=== PATIENT | female | born 1980 | race African-American/Black ===

== ENCOUNTER 2017-03-07 15:24 | Emergency (ER) | payer OTHER ==
[~2017-03-07] VITALS: Ht 149.9 cm; Wt 36.0 kg
[2017-03-07] MEDS ORDERED: SODIUM CHLORIDE 0.9% 1,000 ML IV ONE (18:36)
[2017-03-07 19:20] LABS: BASOPHILS % 0.7 % (0.0-2.0); EOSINOPHILS % 3.5 % (0.0-5.0); HEMATOCRIT. 40.1 % (36.0-48.0); HEMOGLOBIN. 13.1 g/dL (12.0-16.0); LYMPHOCYTES % 28.7 % (20.0-50.0); MEAN CORPUSCULAR HEMOGLOBIN 27.3 pg (28.0-32.0); MEAN CORPUSCULAR VOLUME 83.8 fL (81.0-99.0); MEAN PLATELET VOLUME 9.3 fl (7.4-10.4); NEUTROPHILS % 59.1 % (40.0-76.0); PLATELET 241 x1000/uL (130-400); RED BLOOD CELL COUNT 4.78 mill/uL (4.2-5.4)
[2017-03-07 19:26] LABS: CHLORIDE 103 mEq/L (98-107)
[2017-03-07 19:28] LABS: INR 1.1; PROTHROMBIN TIME 11.4 sec (9.4-11.6)
[2017-03-07 19:32] LABS: CARBON DIOXIDE 27 mEq/L (21-32)
[2017-03-07 20:37] LABS: CLARITY URINE CLEAR (CLEAR); COLOR URINE YELLOW (YELLOW); GLUCOSE URINE NEGATIVE (NEGATIVE); KETONES URINE NEGATIVE (NEGATIVE); LEUKOCYTE ESTERASE URINE NEGATIVE (NEGATIVE); NITRITE URINE NEGATIVE (NEGATIVE); OCCULT BLOOD URINE NEGATIVE (NEGATIVE); PROTEIN URINE NEGATIVE (NEGATIVE); SPECIFIC GRAVITY URINE 1.023 (1.005-1.030); UROBILINOGEN URINE 0.2 E.U./dL (0.2-1.0)
[2017-03-08 00:17] VITALS: BP 120/80
== END 2017-03-08 00:32 | disposition home or self-care (01) ==
LOC: ER 17:46
DX: K59.00 Constipation, unspecified (principal); G93.49 Other encephalopathy; G80.9 Cerebral palsy, unspecified; G40.909 Epilepsy, unspecified, not intractable, without status epilepticus; M41.9 Scoliosis, unspecified
CPT/HCPCS: 36415; 70450; 71010; 80053; 81003; 83605; 85025; 85610; 87040; 93005; 96360; 96361; 99285; J7030

== ENCOUNTER 2019-08-01 06:51 | Emergency (ER) | payer OTHER ==
[~2019-08-01] VITALS: Ht 149.9 cm; Wt 35.0 kg
[2019-08-01] MEDS ORDERED: SODIUM CHLORIDE 0.9% 1000ML BAG (SEPSIS BOLUS) IV ONE (07:30)
[2019-08-01 08:09] LABS: HEMATOCRIT. 36.7 % (36.0-48.0); MEAN CORPUSCULAR HEMOGLOBIN 27.7 pg (28.0-32.0); MEAN CORPUSCULAR VOLUME 84.9 fL (81.0-99.0); MEAN PLATELET VOLUME 9.1 fl (7.4-10.4); PLATELET 309 x1000/uL (130-400); RED BLOOD CELL COUNT 4.32 mill/uL (4.2-5.4); RED CELL DISTRIBUTION WIDTH 15.4 % (11.6-14.6)
[2019-08-01 08:13] LABS: CHLORIDE 105 mEq/L (98-107)
[2019-08-01] MEDS ORDERED: ONDANSETRON HCL 4MG/2ML INJ IV ONE (08:30)
[2019-08-01 08:32] LABS: HCG SCREEN NEGATIVE
[2019-08-01 08:38] LABS: PLATELET ESTIMATE NORMAL
[2019-08-01 09:11] LABS: CREATINE KINASE 93 IU/L (26-192)
[2019-08-01 09:12] LABS: CLARITY URINE CLEAR (CLEAR); COLOR URINE DARK YELLOW (YELLOW); KETONES URINE TRACE (NEGATIVE); LEUKOCYTE ESTERASE URINE TRACE (NEGATIVE); NITRITE URINE NEGATIVE (NEGATIVE); OCCULT BLOOD URINE NEGATIVE (NEGATIVE); PH URINE 7.5 (4.5-8.0); PROTEIN URINE TRACE (NEGATIVE); SPECIFIC GRAVITY URINE 1.026 (1.005-1.030); UROBILINOGEN URINE 0.2 E.U./dL (0.2-1.0)
[2019-08-01] MEDS ORDERED: SODIUM CHLORIDE 0.9% 1,000 ML IV ONE (09:45)
[2019-08-01] MEDS ORDERED: PIPERACILLIN/TAZ 3.375G PREMIX 50 ML IV ONE (12:00)
[2019-08-01] MEDS ORDERED: VANCOMYCIN 1 G PREMIX 200 ML IV ONE (12:00)
[2019-08-01 12:11] LABS: CARBAMAZEPINE 6.6 ug/mL (4-12)
[2019-08-01 12:27] LABS: PHENOBARBITAL 48.8 ug/mL (15.0-40.0)
[2019-08-01 14:56] VITALS: BP 120/84
== END 2019-08-01 14:58 | disposition short-term general hospital (02) ==
LOC: ER 06:51 → CANBEDREQ 14:09 → ER 14:58
DX: E87.2 Acidosis (principal); T42.0X5A Adverse effect of hydantoin derivatives, initial encounter; Y92.9 Unspecified place or not applicable; R56.9 Unspecified convulsions; M41.9 Scoliosis, unspecified; G80.9 Cerebral palsy, unspecified
CPT/HCPCS: 36415; 71045; 80053; 80156; 80184; 81003; 82550; 83605; 84703; 85025; 87040; 87086; 87186; 96365; 96367; 96375; 99285; J2405; J2543; J3370; J7030